=== PATIENT | female | born 1965 | race Caucasian/White ===

== ENCOUNTER 2018-11-18 22:42 | Emergency (ER) | payer SELFPAY ==
[~2018-11-18] VITALS: Ht 165.1 cm; Wt 95.5 kg
--- NOTE | 2018-11-18 22:57 | NUR ---
PT REPORTS KAM STARTING TODAY AFTER GETTING MEDS THIS AFTERNOON. OTC MEDS NOT WORKING
[2018-11-18] MEDS ORDERED: SUMATRIPTAN 6MG/0.5ML SQ ONE ×2 (23:24→23:30)
[2018-11-18] MEDS ORDERED: DIPHENHYDRAMINE 50 MG/ML, 1ML ONE (23:24)
[2018-11-18] MEDS ORDERED: KETOROLAC 30 MG/1 ML ONE (23:24)
[2018-11-18] MEDS ORDERED: PROCHLORPERAZINE 5 MG/ML, 2ML ONE (23:24)
[2018-11-18] MEDS ORDERED: SODIUM CHLORIDE FLUSH 10ML SYR IVF ONE (23:30)
[2018-11-18] MEDS ORDERED: DIPHENHYDRAMINE 50 MG/ML, 1ML IVPush ONE (23:30)
[2018-11-18] MEDS ORDERED: PROCHLORPERAZINE 5 MG/ML, 2ML IVPush ONE (23:30)
[2018-11-18] MEDS ORDERED: KETOROLAC 30 MG/1 ML IVPush ONE (23:30)
--- NOTE | 2018-11-18 23:38 | NUR ---
MEDICATED PER MD ORDER
--- NOTE | 2018-11-19 00:20 | NUR ---
TASK RN: PT RESTING IN GURNEY W/ EYES CLOSED, EVEN/REGULAR RESPIRATIONS NOTED. CHART UP FOR RECHECK
[2018-11-19 01:08] VITALS: BP 133/64
== END 2018-11-19 01:11 | disposition home or self-care (01) ==
LOC: ED 23:42
DX: G43.009 Migraine without aura, not intractable, without status migrainosus (principal); I10 Essential (primary) hypertension; Z87.891 Personal history of nicotine dependence
CPT/HCPCS: 96372; 96374; 96375; 99283; J0780; J1200; J1885; J3030